=== PATIENT | male | born 1970 | race Caucasian/White ===

== ENCOUNTER 2021-09-22 19:09 | Emergency (ER) | payer SELFPAY ==
[2021-09-22 19:10] VITALS: BP 142/91; PULSE 103; RESP 15; TEMP 36.8; O2SAT 96; BMI 36.9
== END 2021-09-22 21:19 | disposition left against medical advice (07) ==
LOC: ED 21:19
DX: M54.9 Dorsalgia, unspecified (principal); W19.XXXA Unspecified fall, initial encounter; Z53.21 Procedure and treatment not carried out due to patient leaving prior to being seen by health care provider

== ENCOUNTER 2022-11-16 08:59 | Emergency (ER) | payer MEDICAID, SELFPAY ==
[2022-11-16 09:00] VITALS: BP 160/103; PULSE 94; RESP 18; TEMP 36.6; O2SAT 100; BMI 36.9
--- NOTE | 2022-11-16 09:09 | EDS_ITS ---
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 He was cleaning his mobile home. He complains of numbness finger. Onset/Context/Timing Onset: Hours Context: Sudden Onset Timing: Continuous Quality of Pain: - (Lack of sensation) Location: Right index finger Current Severity: Mild Maximum Severity: Mild Worsened by: Initial injury Relieved by: Not applicable Associated Symptoms Associated Symptoms: Positive for Parasthesia; Negative for Weakness or Loss of Funtion Narrative Narrative: Patient is a 52-year-old [id number]-eykwadat male who was washing his camper. 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 Sustained laceration right index finger dorsal surface proximal PIP joint. Patient complains of numbness of his finger. Te tanus is unknown. He denies allergies to antibiotics. He is not on an anticoagulant. He does take an aspirin pill daily. He also has high cholesterol. He has no other complaints. Tetanus Immunization: Unknown Prior similar symptoms: No Recent Illness/Hospitalization: No PFSH PFSH Medical History no medical history Home Medications cephalexin 500 mg capsule 500 mg PO Q6 #12 CAPSULES 11/16/22 [Rx Last Taken Unknown] Allergy/AdvReac Type Severity Reaction Status Date / Time No Known Allergies Allergy Verified 11/16/22 09:00 Social History (Updated 11/16/22 @ 09:[address] Baltazar Flores MD) household members: none Smoking Status: Unknown if ever smoked substance use type: does not use ROS ROS ED Constitutional Constitutional ED: Denies chills or fever(s) Neurologic Neurologic: Reports paresthesias RUE (Index finger distal PIP joint) and weakness; Denies headache(s) Hematologic/Lymphatic Hematologic/Lymphatic: Denies easy bleeding or easy bruising EXAM Physical Exam Const Vital Signs: 11/16/22 09:00 Temperature 97.8 F Temperature Source Temporal Pulse Rate 94 Respiratory Rate 18 Blood Pressure 160/103 H Blood Pressure Mean 122 Pulse Ox 100 Oxygen Delivery Method Room Air Positive well nourished, well developed and obese General Appearance ED: well developed and NAD Nutritional Appearance: obese HEENT Reports moist mucous membranes normocephalic and atraumatic Eyes PERRL and EOMs intact bilaterally Resp normal respiratory effort Cardio regular rate and regular rhythm Extremity Extremity Narrative: There may be slight swelling of the index finger. There is a laceration on the dorsal surface in the proximity of the PIP joint. The extensor inside tendon is functionally intact. Patient has no sensation distal to DIP joint. Median, radial and ulnar function intact. Neuro oriented x3, CN's II-XII intact bilaterally, moves all extremities, no focal motor deficits and No no sensory deficits noted Neuro Narrative: Lack of sensation distal PIP joint right index finger. Psych mental status grossly normal Skin General Skin Exam: Negative for petechiae Lesions: no lesions Rashes: no rashes Trauma: laceration linear and No sensation intact; Negative for no lacerations or abrasions MDM MDM MDM Narrative Medical decision making narrative: X-rays of pain to determine if there is any subcu air even though none was appreciated, foreign body. Tetanus was updated. Patient received a gram of Ancef. Once x-ray has been completed will anesthetize patient and repair wound unless findings suggest intraoperative intervention. Radiography Chest X-Ray - ED: Read by ED Physician (Three-view x-ray of the right index finger was independent reviewed interpreted by me at 1028 as positive for subcu air near the MCP joint of the index/long finger. There is no other abnormality noted.) Procedures Other Procedures Procedure(s): 1. Digit was cleansed. 2. Using 1% lidocaine without epinephrine digital block was placed. Patient's wound was cleansed with surgical lines. The wound was irrigated. The laceration is only 4 mm in size. There is no active bleeding. There is avulsed tissue. We will have nurse apply dressing. He has seen Dr. Iggy Terry who is a hand surgeon and is scheduled to see him. Discharge Plan Triage Chief Complaint: Laceration ED Provider: Baltazar Flores Dx/Rx/DC Orders Clinical Impression: Avulsion of skin of finger, Paresthesia of finger, Laceration of right index finger with complication Instructions: ED Laceration Small or ... Prescriptions: New cephalexin [cephalexin] 500 mg capsule 500 mg PO Q6 Qty: 12 0RF Primary Care Provider: Jose Barnes NP Referrals: Care Physician,No Primary [Non-Staff] - Doctor,Your [Non-Staff] - 3-5 Days Activity Restrictions/Additional Instructions: 1. Keep wound clean and dry for the next 2 to 3 days 2. Take antibiotics till gone 3. Follow-up with your hand surgeon, Dr. Iggy Terry for wound reevaluation and evaluation of the numbness distal to injury site Disposition Disposition: Home, Self Care
--- NOTE | 2022-11-16 10:08 | RAD_ITS ---
STUDY: X-RAY -RIGHT INDEX FINGER REASON FOR EXAM: Male, 52 years old. Injury/Pain -- index TECHNIQUE: 3 view(s) of the finger were obtained. COMPARISON: None. FINDINGS: Normal metacarpal head. Normal metacarpophalangeal joint. Normal proximal phalanx. Normal middle phalanx. Normal distal phalanx. Normal proximal interphalangeal joint. Normal distal interphalangeal joint. There is no demonstrated fracture. Mild soft tissue swelling is present around the proximal phalanx. RAD/Finger(s) Min 2 Views IMPRESSION: 1. Mild soft tissue swelling Electronically Signed: Domenic Remy MD at 10:46 EDT ,
[2022-11-16] MEDS: Lidocaine 1% (20 ml mdv) 20 ML Vial INFILT (10:20)
[2022-11-16] MEDS: Cefazolin 1 GM/5 ML Vial IM (10:21)
[2022-11-16] MEDS: Diphth,Pertuss(Acell),Tet Vac 0.5 ML Vial IM (10:21)
== END 2022-11-16 11:02 | disposition home or self-care (01) ==
PROVIDERS: Emergency Provider Emergency Medicine; PCP Nurse Practitioner Primary Care; Visit Provider Emergency Medicine
DX: S61.210A Laceration without foreign body of right index finger without damage to nail, initial encounter (principal); R20.2 Paresthesia of skin; E78.00 Pure hypercholesterolemia, unspecified; Z79.82 Long term (current) use of aspirin; E66.9 Obesity, unspecified; W29.3XXA Contact with powered garden and outdoor hand tools and machinery, initial encounter; Z23 Encounter for immunization
CPT/HCPCS: 73140; 90471; 90715; 96372; 99283; A4216

== ENCOUNTER 2022-12-08 17:42 | Emergency (ER) | payer MEDICAID, SELFPAY ==
[2022-12-08 17:43] VITALS: BP 171/102; PULSE 121; RESP 16; TEMP 36.1; O2SAT 99; BMI 36.9
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
[2022-12-08 20:01] VITALS: RESP 18
== END 2022-12-08 20:01 | disposition home or self-care (01) ==
PROVIDERS: Emergency Provider Emergency Medicine; PCP Nurse Practitioner Primary Care; Visit Provider Emergency Medicine
DX: S61.411A Laceration without foreign body of right hand, initial encounter (principal); W29.8XXA Contact with other powered hand tools and household machinery, initial encounter
CPT/HCPCS: 12002; 99283

== ENCOUNTER 2023-11-09 13:26 | Emergency (ER) | payer MEDICAID, SELFPAY ==
[2023-11-09 13:26] VITALS: BP 146/79; PULSE 107; RESP 18; TEMP 36.1; O2SAT 98
--- NOTE | 2023-11-09 14:05 | RAD_ITS ---
STUDY: X-RAY CHEST REASON FOR EXAM: Male, 53 years old. Chest pain TECHNIQUE: PA and lateral views of the chest. COMPARISON: None. FINDINGS: EKG electrodes are seen. There are increased linear markings at the lung bases with areas of confluence worse at the left lung base suggestive of atelectasis and/or early basilar infiltrates. Radiographic follow-up recommended. There is no demonstrated pleural abnormality. Normal size heart. Normal mediastinum and ana. Normal visualized pulmonary arteries. Normal visualized aortic arch and descending thoracic aorta. There are diffuse degenerative changes of the visualized thoracic spine. Normal visualized ribs, clavicles, and shoulders. There is no demonstrated abnormality of the visualized soft tissue structures of the upper abdomen. RAD/Chest PA and Lateral IMPRESSION: Increased markings at the lung bases with areas of confluence worse at the left lung base suggestive of atelectasis and/or early infiltrate. Follow-up recommended. Electronically Signed: Han Garcia MD at 14:45 EDT ,
--- NOTE | 2023-11-09 14:05 | EKG12_ITS ---
Test Reason : CP Blood Pressure : / mmHG Vent. Rate : 111 BPM Atrial Rate : 111 BPM P-R Int : 152 ms QRS Dur : 096 ms QT Int : 346 ms P-R-T Axes : 044 000 034 degrees QTc Int : 470 ms Sinus tachycardia Cannot rule out Inferior infarct , age undetermined Abnormal ECG Confirmed by JENNY VICK, AASHISH ([id number]), acquisition editor MEHREEN SLOAN ([id number]) on 11/11/2023 6:45:33 AM Referred By: Jasson Moon Confirmed By:ANISHA ALVARADO MD
--- NOTE | 2023-11-09 14:06 | EDS_ITS ---
HPI History of Present Illness Chief Complaint: Chest Pain Informant: patient Narrative Narrative: Patient presented transient right chest pain rating down to his abdomen a.m. this morning. He states symptoms coming to the ED resolved after he passed gas. Denies cough. Tobacco history. History of coronary disease 2 stents last time 2016. Hypertension hyperlipidemia no family history MIs at a young age. Mother had a valve repair. He is followed by [place] cardiology Dr. Cano. He has been at intermittent chest pains for months he has a planned diagnostic cath this coming Tuesday as an outpatient. No recent travel, surgeries, or immobilizations. No history of PE or DVT. Chronic dyspnea with this tobacco history. CVD Risk Factors: Positive for Hypertension, Hypercholesterolemia and Smoking; Negative for Diabetes or Family History 1' </=55 PE Risk Factors: Negative for Recent Travel/Surgery, Recent Immobilization or Prior DVT or PE PFSH PFSH Home Medications ?Medication ?Instructions ?Recorded ?Last Taken ?Type cephalexin 500 mg capsule 500 mg PO Q6 #12 CAPSULES 11/16/22 Unknown Rx Allergy/AdvReac Type Severity Reaction Status Date / Time No Known Allergies Allergy Verified 11/09/23 13:26 Social History household members: none Smoking Status: Current every day smoker tobacco type: cigarettes substance use type: does not use ROS ROS ED Constitutional Constitutional ED: Denies chills, fever(s) or sweats Eyes Eyes: Denies change in vision ENT ENT ED: Denies dysphagia or sore throat Cardiovascular Cardiovascular: Reports chest pain; Denies leg edema, palpitations or racing heartbeat Respiratory/Chest Respiratory/Chest: Reports dyspnea; Denies cough or dyspnea on exertion Gastrointestinal Gastrointestinal: Denies abdominal pain, diarrhea, nausea or vomiting Genitourinary Genitourinary ED: Denies dysuria, hematuria or urinary frequency Musculoskeletal Musculoskeletal: Denies back pain, extremity pain or neck pain Integumentary Denies rash or wounds Neurologic Neurologic: Denies headache(s), paresthesias or weakness EXAM Physical Exam Const Vital Signs: 11/09/23 13:26 11/09/23 14:25 11/09/23 14:54 Temperature 96.9 F L Temperature Source Temporal Pulse Rate 107 H 102 H 93 Respiratory Rate 18 17 19 H Blood Pressure 146/79 H 132/73 H 109/78 Blood Pressure Mean 101 92 88 Pulse Ox 98 97 98 Oxygen Delivery Method Room Air Room Air Room Air 11/09/23 15:44 Temperature 97.1 F L Temperature Source Pulse Rate 66 Respiratory Rate 17 Blood Pressure 122/71 H Blood Pressure Mean 88 Pulse Ox 99 Oxygen Delivery Method Positive well nourished and well developed General Appearance ED: well developed and NAD HEENT Reports moist mucous membranes normocephalic and atraumatic Eyes EOMs intact bilaterally and conjunctivae normal General Eye ED: Yes normal appearance of both eyes Neck no lymphadenopathy and supple General: Negative for tenderness Chest Wall Chest: Negative for tenderness Resp normal respiratory effort and normal air movement Effort and Inspection: symmetric chest movement; Negative for respiratory distress Cardio regular rhythm and no murmurs Rate: tachycardic Peripheral Pulses: pulses 2+ throughout GI normal to inspection, nondistended, normoactive bowel sounds and non-tender Palpation: Negative for guarding or rebound tenderness present Back/Spine no CVA tenderness and no thoracic nor lumbar tenderness Extremity normal to inspection General Extremety ED: Negative for edema or tenderness General Extremity: Negative for edema Neuro oriented x3 and no sensory deficits noted Sensorium / Orientation: awake and alert Skin no rashes or lesions noted and no wounds MDM MDM MDM Narrative Medical decision making narrative: Interventions / MDM: Differential diagnosis: Atypical chest pain Diagnosis considered but do not suspect: ACS however EKG no ischemic findings negative cardiac enzyme. Pneumonia however clinically no cough. My EKG interpretation: Sinus rate 111, no ST changes. Imaging independently reviewed and interpreted by myself: 2 view chest x-ray atelectasis. Possible early infiltrate by radiology however no clinical cough. External documents reviewed: N/A Test considered but not ordered:N/A ED course: Patient symptom-free after passing gas Emergency Department. History of coronary disease. No PE risk factors. Is not hypoxic. Will check cardiac lab and chest x-ray. EKG sinus rhythm no acute findings. Workup negative. Remains symptom-free. Discussed with 6 hours of symptoms negative troponin not likely cardiac in nature at this time. He discussed treatment for potential constipation symptoms. Discussed can use magnesium citrate half a bottle and repeat as needed. He has a nonsurgical abdomen. Outpatient follow-up with his operations support analyst for planned heart catheterization electively. Discussed return precautions. All questions were answered. Re-evaluation: stable Disposition discussed with patient/family/significant other: Patient Case discussed with consulting clinician: N/A This note was generated with [employer] dictation software. It may contain incorrect words, spelling, and punctuation that were not noted in checking the note before signing. Lab Data Attestation: I reviewed the patient's lab results. Labs: Laboratory Results - last 24 hr 11/09/23 13:50 WBC 5.5 RBC 4.82 Hgb 14.0 Hct 42.8 MCV 88.8 MCH 29.0 MCHC 32.7 RDW Std Deviation 44.7 H RDW Coeff of Kiersten 13.8 Plt Count 165 MPV 10.3 Immature Gran % (Auto) 0.500 Neut % (Auto) 83.6 H Lymph % (Auto) 4.0 L [place] % (Auto) 11.0 H Eos % (Auto) 0.7 Baso % (Auto) 0.2 Absolute Neuts (auto) 4.6 Absolute Lymphs (auto) 0.22 L Nucleated RBC % 0 Sodium 134 L Potassium 3.6 Chloride 105 Carbon Dioxide 24.0 Anion Gap 5 BUN 9 Creatinine 0.81 Est GFR (MDRD) Af Amer 127 Est GFR (MDRD) Non-Af 105 BUN/Creatinine Ratio 11.1 Glucose 102 Calcium 8.4 L Troponin I High Sens 4 Radiography Diagnostic Testing: Clinical Impression(s) from Imaging Studies Chest X-Ray 11/09/23 14:05 IMPRESSION: Increased markings at the lung bases with areas of confluence worse at the left lung base suggestive of atelectasis and/or early infiltrate. Follow-up recommended. Electronically Signed: Han Garcia MD at 14:45 EDT , Discharge Plan Triage Chief Complaint: Chest Pain ED Provider: Jasson Moon Dx/Rx/DC Orders Clinical Impression: Chest pain, History of CAD (coronary artery disease), Tobacco dependency, COPD (chronic obstructive pulmonary disease) Instructions: ED Chest Pain, Uncertain Cause Prescriptions: No Action cephalexin [cephalexin] 500 mg capsule 500 mg PO Q6 Qty: 12 0RF Primary Care Provider: Jose Barnes NP Referrals: Jose Barnes NP, [employer]MINISTRATOR-C [Primary Care Provider] - Activity Restrictions/Additional Instructions: Negative workup in the emergency department. You are symptom-free. Keep your follow-up with your operations support analyst for your heart cath on Tuesday. Develop returning or worsening symptoms, return to the ED for reevaluation. Print Language: Senegalese Disposition Disposition: Home, Self Care Discharge Date/Time: 11/09/23 15:45
--- NOTE | 2023-11-09 14:07 | NURSING ---
NO OLD EKG
[2023-11-09 14:20] LABS: Absolute Lymphocyte Count 0.22 X10^3/uL (0.83-4.51); Absolute Neutrophil Count 4.6 X10^3/uL (2.0-7.7); Basophil# 0.01 X10^3/uL; Basophil% 0.2 % (0-1); Eosinophil# 0.04 X10^3/uL; Eosinophils% 0.7 % (0-5); Hematocrit 42.8 % (40-54); Lymphocyte # 0.22 X10^3/ul (0.83-4.51); Mean Corp Hgb Conc 32.7 g/dL (32-36); Mean Corpuscular Volume 88.8 fL (80-94); Mean Platelet Vol. 10.3 fl (6.2-12.0); Monocyte# 0.61 X10^3/uL; NRBC Flagged by Analyzer 0 % (0-5); Neutrophil # 4.62 X10^3/uL (2.7-7.7); Neutrophil % 83.6 % (47-70); POSITIVE DIFFERENTIAL YES; Platelet Count 165 K/mm3 (150-450); RBC Distribution Width CV 13.8 % (11.6-14.6); RBC Distribution Width SD 44.7 fl (35.1-43.9); Red Blood Count 4.82 M/mm3 (4.6-6.2); White Blood Count 5.5 K/mm3 (4.4-11.0)
[2023-11-09 14:25] VITALS: BP 132/73; PULSE 102; RESP 17; O2SAT 97
[2023-11-09 14:38] LABS: Anion Gap 5 (5-15); BUN 9 mg/dL (7-18); BUN/Creat Ratio 11.1 RATIO (10-20); Calcium,Total 8.4 mg/dL (8.5-10.1); Chloride 105 mmol/L (98-107); Creatinine, Serum 0.81 mg/dL (0.70-1.30); EST Glomerular Filtration Rate 105 mL/min (>60); Est Glom Filt Rate - Afr Amer 127 mL/min (>60); Glucose 102 mg/dL (74-106); Potassium 3.6 mmol/L (3.5-5.1); Sodium Level 134 mmol/L (136-145); Troponin-I HS 4 pg/mL (3.0-78.0)
[2023-11-09 14:54] VITALS: BP 109/78; PULSE 93; RESP 19; O2SAT 98
[2023-11-09 15:44] VITALS: BP 122/71; PULSE 66; RESP 17; TEMP 36.2; O2SAT 99
== END 2023-11-09 15:45 | disposition home or self-care (01) ==
PROVIDERS: Emergency Provider Emergency Medicine; PCP Nurse Practitioner Primary Care; Referring Provider Emergency Medicine; Visit Provider Emergency Medicine
DX: R07.9 Chest pain, unspecified (principal); J44.9 Chronic obstructive pulmonary disease, unspecified; I25.10 Atherosclerotic heart disease of native coronary artery without angina pectoris; F17.210 Nicotine dependence, cigarettes, uncomplicated; Z95.5 Presence of coronary angioplasty implant and graft; I10 Essential (primary) hypertension; E78.00 Pure hypercholesterolemia, unspecified; R06.00 Dyspnea, unspecified
CPT/HCPCS: 71046; 80048; 84484; 85025; 93005; 99283; A4216